=== PATIENT | male | born 1955 | race Two or more races ===

== ENCOUNTER 2024-01-23 13:27 | Outpatient (AMB) | payer MEDICARE, SELFPAY ==
[2024-01-23 14:00] VITALS: BP 153/90; PULSE 77; RESP 18; TEMP 36.6; O2SAT 96; BMI 32.5
--- NOTE | 2024-01-23 14:00 | PD.ORTHCLVIS ---
Vital signs 01/23/24 14:00 Height 1.68 m Height Method Stated Weight 91.314 kg Weight Measurement Method Standing Scale BMI 32.5 BP 153/90 H Blood Pressure Source Automatic Cuff Blood Pressure Location Right Upper Arm Position Sitting Respiration 18 Pulse 77 Pulse Source Monitor Temp 97.9 F Temp Source Temporal Artery Scan Pulse Oximetry (%) 96 Oxygen Delivery Method Room Air Med/Allergies Allergies & Medications Allergies No Known Drug Allergies Allergy (Verified 01/23/24 14:01) Medication Reconciliation lisinopril 20 mg tablet 20 mg PO QDAY 01/23/24 [History Confirmed 01/23/24] meloxicam 7.5 mg tablet 7.5 mg PO QDAY #45 tabs 01/23/24 [Rx] Subjective Visit Visit for: new patient and knee Immunization / Flu Flu Vaccine in the Last 12 Months: No Flu Vaccine Exclusion Criteria: No Exclusion Criteria History of Present Illness Chief complaint: KNEE PAIN Patient is a pleasant 68-year-old male who presents today for evaluation of his right knee. He has had pain for over 4 months. He has tried injections in the past and has some relief. He reports that he doing quite well at this point in time. Personal History Occupation: UNEMPLOYED Red flag PMH: none Pain Pain level (0-10): 5 Pain duration: WITH MOMENT Pain location: anterior Pain quality: sharp, dull and aching Pain timing: increases with activity Associated signs & symptoms: none Ambulatory data Ambulatory device: none Treatments Number of previous injections: 1 Improvement with previous injections: No Improvement with PT: No Improvement with NSAIDS: no Review of Systems Review of Systems: All systems negative unless otherwise noted in HPI. Exam Exam Patient is in no acute distress and is cooperative with the examination today. Patient has a normal mood and affect. Breathing is nonlabored. In no respiratory distress. Bilateral extremities were evaluated and demonstrates sensation intact to light touch. Palpable pedal pulses are present. No significant edema is present. Right knee is tender to palpation medially. Range of motion 0 to 110 degrees. He is negative Mir's I reviewed an MRI. This demonstrates a partial tear of the ACL as well as a extruded medial meniscus. 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 We discussed nonoperative and operative options. He is doing way too well to need surgery. I discussed with him that a degenerative discal tear can be actually quite common at his age and 90% of people get better with nonoperative treatment. I would recommend anti-inflammatories and we sent him a prescription for meloxicam. Advanced Care Planning Discussion Advance care planning discussed with:: patient Office Procedures GNS Level of Care Nursing/Assessment Patient Status: Initial/New Patient Nursing Assessment/Reassesment: Medication Reconciliation, Update PMH in EMR and Vital Signs Coordination of Care: Complex Care and Chronic Disease 1-5, Education Complex Pt/Fam, Consent,records obtained, informed consent, Results/Orders obtained and Staff clarify orders New Patient Charge New Patient Point Assignment: [id number] New Patient Point Charge: ERGONOMICS ENGINEER Level 3 ([id number]) Past Medical History Past Medical History Have you ever been diagnosed with any of the following: Respiratory Problems Smoking: No Smoking Exposure: No
== END 2024-01-23 14:30 | disposition home or self-care (01) ==
LOC: HODSRG 13:27
PROVIDERS: PCP Physician Assistant Medical; Referring Provider Physician Assistant Medical; Supervising Provider Orthopaedic Surgery Adult Reconstructive Orthopaedic Surgery; Visit Provider Orthopaedic Surgery Adult Reconstructive Orthopaedic Surgery
DX: M17.11 Unilateral primary osteoarthritis, right knee (principal)
CPT/HCPCS: 99203; G0463